=== PATIENT | male | born 1935 | race Caucasian/White ===

== ENCOUNTER 2016-08-09 09:24 | Emergency (ER) | payer MEDICARE, OTHER ==
--- NOTE | ~2016-08-09 | ER ---
PATIENT'S NAME: ANDREWS CONNOLLY [facility] AGE: 80 Y [address] ROOM: [place] [address] LOCATION: [facility] ADMIT DATE: 08/09/2016 ER/Outpatient Report DISCHARGE DATE: 08/09/2016 FAMILY PHYSICIAN: Hair Sevilla MD ATTENDING PHYSICIAN: Coty Mccullough Time of Arrival: 0924 hours. Time of Evaluation: 0935 hours. IDENTIFICATION: A 80-year-old male. CHIEF COMPLAINT: Check urine. HISTORY OF PRESENT ILLNESS: The patient is a 80-year-old male, who was seen here on May 22 with a complaint of constipation but actually had urinary retention. The patient had a postvoid residual of 700 mL. Haynes catheter was placed and drained 1 L. At that time, he went to stay with his daughter in [place] and saw a urologist there. That urologist apparently did some sort of surgery, and he is supposed to be checked every 2 weeks to ensure of his emptying. He has also been p.r.n. straight cathing but nothing recent. He has no symptoms. No dysuria. No increased frequency of urination. He said he goes frequently, but he feels that he is emptying his bladder, and that was in [place] as was [place]. ALLERGIES: NO KNOWN DRUG ALLERGIES. CURRENT MEDICATIONS: 1. A blood pressure medicine. 2. Flomax. He does not remember his other medications. He states that he takes 5 total medications. He does not have a list with him. MEDICAL PROBLEMS: Hypertension, hypothyroidism, cholelithiasis, history of an ankle fracture. It sounds like, some BPH. Old records reflect that he was on levothyroxine as well, that was in 2013. I do not have any recent records. SOCIAL HISTORY: The patient does move back to his place in [place]. He does live alone. He is a retired [employer]. Tobacco use, 2 cigarettes per day. Alcohol use, the patient denies alcohol use. Records reflect a history of alcoholism. He has been through treatment in the past. He denies any current use. PATIENT'S NAME: ANDREWS CONNOLLY [facility] AGE: 80 Y [address] ROOM: [place] [address] LOCATION: [facility] ADMIT DATE: 08/09/2016 ER/Outpatient Report DISCHARGE DATE: 08/09/2016 FAMILY PHYSICIAN: Hair Sevilla MD ATTENDING PHYSICIAN: Coty Mccullough FAMILY HISTORY: No pertinent family history. REVIEW OF SYSTEMS: All systems reviewed and negative other than what is noted in the HPI. PHYSICAL EXAMINATION: VITAL SIGNS: Height 5 feet 10 inches, weight 78.7 kg, blood pressure 148/87, pulse 69, respirations 16, temperature 97.6, and saturations 98%. GENERAL: A 80-year-old male, in no acute distress. HEENT: Unremarkable. LUNGS: Clear to auscultation. HEART: Regular rate and rhythm. ABDOMEN: Soft, nondistended, nontender. No CVA tenderness. SKIN: [place], warm, and dry. No lesions or rashes noted. NEURO: No focal deficit. EMERGENCY DEPARTMENT COURSE: The patient had zero on the bladder scan. He was unable to give us a urine sample while he was here. He did not want to go ahead and go, and he will return with a urine sample. The patient was given a collecting bottle for the UA and with discharged history of urinary retention, no retention at this time, outpatient UA and follow up with Dr. Sevilla as scheduled in August, follow up sooner if any problems or concerns. He actually did return a urine sample, which was sent to the laboratory, revealing specific gravity of 1.015, pH 6, leukocytes positive, nitrites negative, trace of protein, trace of ketones, 20- 50 white cells, 2-5 red cells, rare epithelial cells, no bacteria. Urine culture is pending. I did attempt to call him at his listed number of [phone] and left a message for him to return this call. At this time, he is asymptomatic. I would probably wait for the culture results to return. COTY MCCULLOUGH MD CAR/modl /[id number] d: 08/09/168 t: 08/10/16 1427, OUTPATIENT REPORT
--- NOTE | ~2016-08-09 | ER ---
PATIENT'S NAME: DARRIUS GASTON [facility] AGE: 80 Y [address] ROOM: [place] [address] LOCATION: [facility] ADMIT DATE: 08/09/2016 ER/Outpatient Report DISCHARGE DATE: 08/09/2016 FAMILY PHYSICIAN: Hair Sevilla MD ATTENDING PHYSICIAN: Sommer Mccullough Darrius Gaston was seen yesterday in the ER and he had brought back a UA. I did attempt to call him, but he did not answer. He called back today. His urine shows specific gravity 1.015, leukocytes 500/mg per deciliter, trace of protein, negative nitrites, 20-50 white cells, rare epithelial cells, negative bacteria. He was asymptomatic. He was just coming in for a check, please refer to that notation. The culture is negative so far today, so we will await culture results, not start him on any antibiotics at this time. He will call tomorrow and again on for culture results. SOMMER MCCULLOUGH MD CAR/modl /[id number] d: 08/10/16 2303 t: 08/12/16 1704, OUTPATIENT REPORT
[2016-08-09 11:56] LABS: BLOOD URINE 50 /UL (NEGATIVE); COLOR URINE YELLOW (YELLOW); GLUCOSE URINE NEGATIVE (NEGATIVE); KETONE URINE 5 mg/dL (NEGATIVE); LEUKOCYTES URINE 500 /UL (NEGATIVE); NITRITE URINE NEGATIVE (NEGATIVE); PROTEIN URINE 30 mg/dL (NEGATIVE); SPEC GRAVITY URINE 1.015 (1.003-1.035); TURBIDITY URINE 2+ (CLEAR); UROBILINOGEN URINE 1 mg/dL (NORMAL)
[2016-08-09 12:06] LABS: BACTERIA URINE NEGATIVE (NEGATIVE); EPITHELIAL URINE RARE #/HPF (NEGATIVE); MUCUS URINE 1+ (NEGATIVE); WBC URINE 20-50 #/HPF (NEGATIVE)
== END 2016-08-09 10:43 | disposition disaster alternative care site (69) ==
LOC: GMED 09:24
PROVIDERS: Family Medicine
PROC: 4A0D7LZ Measurement of Urinary Volume, Via Natural or Artificial Opening (ICD-10-PCS; principal; 2016-08-09)
DX: R33.9 Retention of urine, unspecified (principal); E03.9 Hypothyroidism, unspecified; I10 Essential (primary) hypertension; F17.210 Nicotine dependence, cigarettes, uncomplicated